=== PATIENT | male | born 1965 | race Caucasian/White ===

== ENCOUNTER 2020-05-10 06:18 | Outpatient (REF) | payer OTHER, SELFPAY ==
[2020-05-10 11:13] LABS: Glucose Urine UA NEG (NEG); Leukocyte Esterase Urine NEG (NEG); Nitrite Urine NEG (NEG); Specific Gravity - Urine 1.025 (1.005-1.025); Urine Blood NEG (NEG); Urine Ketones NEG (NEG); Urine Protein NEG (NEG-TRACE)
[2020-05-10 11:14] LABS: Basophils Percent Auto 0.5 % (0-2); Eosinophils Absolute Auto 0.1 X10*3/uL (0.0-0.4); Eosinophils Percent Auto 1.9 % (0-4); Hematocrit 45.4 % (42-52); Hemoglobin 14.8 g/dl (14.0-18.0); Imm Gran Abs Auto 0.02 X10*3/uL (0.00-0.03); Imm Gran Pct Auto 0.3 % (0.0-0.4); Lymphocytes Absolute Auto 1.9 X10*3/uL (1.2-4.9); Lymphocytes Percent Auto 29.4 % (20-40); Mean Corpuscular HGB Conc 32.6 g/dl (31.0-36.0); Mean Corpuscular Hemoglobin 29.4 pg (27.0-33.0); Mean Corpuscular Volume 90.3 fL (80-98); Mean Platelet Volume 12.3 fL (9.4-12.4); Monocytes Absolute Auto 0.7 X10*3/uL (0.1-1.2); Monocytes Percent Auto 10.5 % (2-11); Neutrophils Absolute Auto 3.7 X10*3/uL (2.0-8.3); Neutrophils Percent Auto 57.4 % (45-73); Red Blood Count 5.03 X10*6/uL (4.60-5.80); Red Cell Distribution Width 12.4 % (11.0-16.0); White Blood Count 6.4 X10*3/uL (4.8-10.8)
[2020-05-10 11:15] LABS: Appearance Urine CLEAR; Color Urine YELLOW
[2020-05-10 11:31] LABS: Alanine Aminotransferase 39 U/L (0-40); Albumin Level 4.2 g/dL (3.5-5.0); Alkaline Phosphatase 74 U/L (39-117); Anion Gap 13 (12-20); Aspartate Amino Transferase 21 U/L (5-37); Bilirubin Total 0.5 mg/dL (0.0-1.0); Blood Urea Nitrogen 12 mg/dL (9-16); Calcium 8.9 mg/dL (8.4-10.2); Carbon Dioxide 28 mmol/L (22-29); Chloride 105 mmol/L (96-108); Cholesterol 152 mg/dL; Estimated Glomerular Filt Rate > 60; Glucose Fasting 77 mg/dL (60-99); HDL Cholesterol 37 mg/dL; LDL Cholesterol Calculated 99 mg/dl; Potassium 3.6 mmol/L (3.3-5.1); Sodium 142 mmol/L (135-145); Total Protein 7.4 g/dL (6.5-8.0); Triglycerides 83 mg/dL
[2020-05-10 11:41] LABS: Platelet Count 95 X10*3/uL (160-400)
[2020-05-10 11:42] LABS: MANUAL DIFF FLAG SCAN
[2020-05-10 11:43] LABS: SLIDE REVIEW VERIFIED
[2020-05-10 11:55] LABS: Prostate Specific Antigen 1.51 ng/mL (<0.05-4.0); Thyroid Stimulating Hormone 2.58 uIU/mL (0.32-4.0); Vitamin D 25-OH Total 21.2 ng/mL (>30)
== END 2020-05-10 06:19 | disposition home or self-care (01) ==
LOC: HO.HMGCLDS 06:18
PROVIDERS: PCP Internal Medicine; Visit Provider Internal Medicine
DX: I10 Essential (primary) hypertension (principal); Z12.5 Encounter for screening for malignant neoplasm of prostate
CPT/HCPCS: 36415; 80053; 80061; 81003; 82306; 84153; 84443; 85025

== ENCOUNTER 2022-08-31 10:09 | Outpatient (REF) | payer OTHER, SELFPAY ==
[2022-08-31 13:59] LABS: Basophils Percent Auto 0.3 % (0-2); Eosinophils Percent Auto 0.3 % (0-4); Hematocrit 48.2 % (42.0-52.0); Imm Gran Abs Auto 0.02 X10*3/uL (0.00-0.03); Imm Gran Pct Auto 0.3 % (0.0-0.4); Lymphocytes Absolute Auto 1.7 X10*3/uL (1.2-4.9); MANUAL DIFF FLAG SCAN; Mean Corpuscular HGB Conc 33.2 g/dl (31.0-36.0); Mean Corpuscular Hemoglobin 29.9 pg (27.0-33.0); Mean Corpuscular Volume 90.1 fL (80.0-98.0); Monocytes Absolute Auto 0.6 X10*3/uL (0.1-1.2); Monocytes Percent Auto 8.1 % (2-11); Neutrophils Absolute Auto 4.8 x10*3/uL (2.0-8.3); PLT CLUMP 1; Red Blood Count 5.35 X10*6/uL (4.60-5.80); Red Cell Distribution Width 12.9 % (11.0-16.0); SCAN SMEAR FLAG 1
[2022-08-31 14:44] LABS: White Blood Count 7.1 X10*3/uL (4.8-10.8)
[2022-08-31 14:45] LABS: SLIDE REVIEW VERIFIED
[2022-08-31 15:12] LABS: Alanine Aminotransferase 66 U/L (0-40); Albumin Level 4.3 g/dL (3.5-5.0); Alkaline Phosphatase 81 U/L (39-117); Anion Gap 12 (12-20); Aspartate Amino Transferase 38 U/L (5-37); Bilirubin Total 0.9 mg/dL (0.0-1.0); Blood Urea Nitrogen 13 mg/dL (9-16); Calcium 9.8 mg/dL (8.4-10.2); Carbon Dioxide 28 mmol/L (22-29); Chloride 102 mmol/L (96-108); Cholesterol 167 mg/dL; Estimated Glomerular Filt Rate > 60; Glucose Fasting 104 mg/dL (60-99); HDL Cholesterol 38 mg/dL; LDL Cholesterol Calculated 116 mg/dl; Potassium 4.4 mmol/L (3.3-5.1); Sodium 138 mmol/L (135-145); Thyroid Stimulating Hormone 1.27 uIU/mL (0.32-4.0); Triglycerides 66 mg/dL
== END 2022-08-31 10:10 | disposition home or self-care (01) ==
LOC: HO.HMGCLDS 10:09
PROVIDERS: PCP Internal Medicine; Visit Provider Internal Medicine
DX: F41.9 Anxiety disorder, unspecified (principal); R00.2 Palpitations; I10 Essential (primary) hypertension
CPT/HCPCS: 36415; 80053; 80061; 84443; 85025

== ENCOUNTER 2024-01-13 09:52 | Emergency (ER) | payer OTHER, SELFPAY ==
--- NOTE | ~2024-01-13 | XR_ITS ---
EXAMINATION: XR HAND, LEFT CLINICAL INFORMATION: lac COMPARISON: None available. TECHNIQUE: PA, lateral, and oblique views of the left hand. FINDINGS: The bones and soft tissues are normal. No fracture. Alignment is anatomic. Joint spaces are maintained. No erosions or soft tissue calcifications. XR/XR hand LT min 3V IMPRESSION: Normal left hand. Electronically signed by: Colleen Major MD 01/13/2024 10:33 AM [facility]ASS[facility] MARTINEZ
[2024-01-13 10:00] VITALS: BP 143/79; PULSE 81; RESP 20; TEMP 36.2; O2SAT 98; BMI 31.6
--- NOTE | 2024-01-13 10:57 | ED.GENADULT ---
HPI - General Adult General Chief complaint: Wound/Laceration Stated complaint: lt hand laceration Time Seen by Provider: 01/13/24 10:27 Source: patient Mode of arrival: ambulatory Limitations: no limitations History of Present Illness ED Provider: Donovan Mcdowell PA-C HPI narrative: 58-year-old male presents to ED for left hand laceration caused by broken piece of a heater he was trying to fix. Unknown last tetanus shot. Patient denies any tingling, numbness, or profuse bleeding. Patient states no other complaints. Related Data Previous Rx's ?Medication ?Instructions ?Recorded cephalexin 500 mg capsule 500 mg PO QID 7 days #28 caps 01/13/24 Allergies Allergy/AdvReac Type Severity Reaction Status Date / Time No Known Allergies Allergy Verified 01/13/24 10:01 Review of Systems Review of Systems: Left hand laceration Yes all other systems are reviewed and are negative [facility] Social History Social History Advance Directives: No Advance Directives Information Provided: Yes Physical Exam ED Vital Signs: Vital Signs - 24 hr 01/13/24 10:00 01/13/24 12:04 Temperature 97.2 F 97.2 F Pulse Rate 81 81 Respiratory Rate 20 20 Blood Pressure 143/79 H 143/79 H Pulse Oximetry 98 98 Oxygen Delivery Method Room Air Room Air BMI result Body Mass Index 31.6 Const General: cooperative, healthy appearing, comfortable, no acute distress, well developed, alert, awake and Physically active Orientation/consciousness: patient oriented x3 HENMT Head: Yes normal to inspection, Yes No palpable skull fracture present, Yes normocephalic and Yes atraumatic Eyes General: appearance normal, both eyes and all related structures Neck Neck: Yes normal visual inspection, Yes full ROM, Yes no lymphadenopathy, Yes no meningeal signs, Yes trachea midline, Yes supple, No anterior neck swelling and No tender Chest Chest palpation & inspection: normal inspection of the chest and normal palpation of entire chest wall Resp Effort & Inspection: normal respiratory effort and able to speak in complete sentences Auscultation: clear to auscultation bilaterally Cardio Jugular venous distension: no JVD Heart sounds: S1 normal heart sound present and S2 normal heart sound present GI Inspection: Yes normal to inspection Palpation (GI): Soft to palpation, not firm, nontender, no guarding and not rigid General: Yes no CVA tenderness Back/Spine/Pelvis Back: no CVA tenderness and No back tenderness Skin General skin exam: no rashes or lesions noted, elasticity normal and turgor normal Neuro General: patient oriented x3, gait normal, tone normal, moves all extremities, Normal light touch and pain sensation, no meningeal signs, no focal motor deficits, CN's II-XI intact bilaterally and normal sensation to monofilament Extrem General: Yes normal to inspection, Yes full ROM and Yes capillary refill normal Hand/finger images: 1. Positive for laceration. Negative for bone exposure. Bleeding controlled. Patient is able to move all fingers. Rest of extremity normal. Motor/neuro/vascular exam intact. Psych Appearance: grossly normal, well kempt and not disheveled Medications Administered Discontinued Medications Generic Name Dose Route Start Last Admin Trade Name Freq PRN Reason Stop Dose Admin Diphtheria/Tetanus/Acell Pertussis 0.5 ml 01/13/24 10:51 01/13/24 11:05 Diphth,Pertus(Acell),Tet Adult 0.5 Ml Syringe IM 01/13/24 10:52 0.5 ml .ONCE ONE Administration Lidocaine HCl 5 ml 01/13/24 10:51 01/13/24 11:06 Lidocaine Hcl 1 % Mpf 5 Ml Vial INFILTRATI 01/13/24 10:52 5 ml ONCE ONE Administration Lidocaine HCl 5 ml 01/13/24 10:51 01/13/24 11:06 Lidocaine Hcl 1 % Mpf 5 Ml Vial INFILTRATI 01/13/24 10:52 5 ml ONCE ONE Administration Medical Decision Making Medical Decision Making MDM Narrative: 58-year-old male with left hand laceration caused by a dirty heater. Will need laceration repair. 11:51pm: X-ray negative for any fracture. Wound cleaned with normal saline and Betadine iodine. Lidocaine 1% 7 mL placed into wound. Nylon size 3 sutures used. Six sutures placed. Patient given Tdap. Patient will be discharged with antibiotics. Patient explained worrisome signs and informed to return to the ED immediately. Not suspecting any took nerve or tendon injury. X-ray negative fracture. Differential Diagnosis Differential Diagnoses: The differential diagnosis associated with the presentation includes (laceration) Admission/Observation Consideration of admission/observation: Escalation of care including admission/observation considered Independent Interpretation I performed an independent interpretation of an: Plain X-Ray Radiology Impression Discussion of test interpretation with radiology: I have reviewed the radiologist's reading. Independent Historian Clinical information obtained from an independent historian. History obtained from or confirmed by: Spouse () and Other (patinet) External Record Review External record reviewed: Other Prescription Management I considered prescription management with: Antibiotic Discharge Plan Discharge Clinical Impression: Laceration Patient Disposition: Home, Self-Care Instructions: Laceration (ED) Additional Instructions: Sutures should be removed in 10-11 days. Return to the ED immediately for any swelling, redness, pus discharge, foul odor, fever, chills, or any other concerning symptoms. You will be discharged with antibiotics to prevent infection. Keep laceration repair dry the 1st 48 hours. Prescriptions: New cephalexin 500 mg capsule 500 mg PO QID 7 Days Qty: 28 0RF Stand Alone Forms: Work/School Release Interventions: ED Discharge Assessment Last Done: 01/13/24 12:04 Discharge Date/Time: 01/13/24 12:04 Print Language: Kazakh
[2024-01-13] MEDS: Diphth,Pertus(ACell),Tet Adult 0.5 ML SYRINGE IM (11:05)
[2024-01-13] MEDS: Lidocaine HCl 1 % MPF 5 ML VIAL INFILTRATI ×2 (11:06)
[2024-01-13 12:04] VITALS: BP 143/79; PULSE 81; RESP 20; TEMP 36.2; O2SAT 98
== END 2024-01-13 12:04 | disposition home or self-care (01) ==
PROVIDERS: Emergency Provider Emergency Medicine; PCP Internal Medicine
DX: S61.412A Laceration without foreign body of left hand, initial encounter (principal); W26.8XXA Contact with other sharp object(s), not elsewhere classified, initial encounter; Y93.89 Activity, other specified; Y92.89 Other specified places as the place of occurrence of the external cause; Y99.8 Other external cause status
CPT/HCPCS: 12001; 73130; 90471; 90715; 99282; 99284; J2003